=== PATIENT | male | born 1965 | race Caucasian/White ===

== ENCOUNTER 2018-02-02 06:29 | Day surgery (SDC) | payer OTHER ==
[2018-01-29 17:49] VITALS: BMI 30.5
[2018-02-02] MEDS ORDERED: PROPOFOL 20 ML ONE ×2 (09:04→09:48)
[2018-02-02] MEDS ORDERED: MIDAZOLAM HCL 2 MG/2 ML SINGLE DOSE VIAL ONE (09:04)
[2018-02-02] MEDS ORDERED: DEXAMETHASONE SOD PHOSPHATE 4 MG/1 ML VIAL ONE (09:05)
--- NOTE | 2018-02-02 10:03 | OP ---
Operative Note - Note: Operative Date: 02/02/18 Pre-Operative Diagnosis: Left kidney stone Operation: Left ESWL Findings: 3mm up pole and 3 mm mid pole kidney stone Post-Operative Diagnosis: Same as Pre-op Anesthesia: Fractional
[2018-02-02] MEDS ORDERED: LACTATED RINGERS SOLUTION 1,000 ML IV SCH (10:15)
[2018-02-02] MEDS ORDERED: ONDANSETRON 4 MG/2 ML VIAL IVPUSH PRN (10:15)
[2018-02-02] MEDS ORDERED: oxyCODONE HCL 5 MG TABLET PO PRN (10:15)
[2018-02-02 11:52] VITALS: BP 149/90; PULSE 60; TEMP 98.1
--- NOTE | 2018-02-02 21:08 | OP ---
DATE OF OPERATION: 02/02/2018 PREOPERATIVE DIAGNOSIS: Left renal stone. POSTOPERATIVE DIAGNOSIS: Left renal stone. PROCEDURE: Left extracorporeal shock wave lithotripsy. ATTENDING: Bryan Sneed MD ANESTHESIA: Fractional. DESCRIPTION OF OPERATION: The patient was brought in the operating room, placed in supine position on the operating room table. Ultrasonography and fluoroscopy were performed. Two stones were found in the left kidney in the upper and mid pole. Both stones measured 3 mm. At this point, anesthesia and antibiotics were administered. Extracorporeal shock wave lithotripsy was performed. A total of 3000 impulses at 17 joules of power were administered to the stones, 1500 pulses to each stone. Excellent fragmentation was noted. No complications were noted. The patient tolerated the procedure very well. BRYAN SNEED M.D. /[id number]
== END 2018-02-02 12:00 | disposition home or self-care (01) ==
LOC: JASU-SURG 06:29
PROVIDERS: ATTEND Urology
PROC: 0TF4XZZ Fragmentation in Left Kidney Pelvis, External Approach (ICD-10-PCS; principal; 2018-02-02 08:45)
DX: N20.0 Calculus of kidney (principal)
CPT/HCPCS: 94760